=== PATIENT | female | born 1995 | race American Indian/Alaskan Native ===

== ENCOUNTER 2016-11-11 17:34 | Emergency (ER) | payer SELFPAY ==
--- NOTE | 2016-11-11 18:05 | Emergency Department Report ---
Chief Complaint: Abdominal Pain Stated Complaint: CONCERNS Time Seen by Provider: 11/11/16 18:01 - HPI History of Present Illness: PT states she she just found out she is . PT states lmp in Sep. PT states she sees cryptologist but she has been having pelvic pain. - ROS Review of Systems: + nausea + lower abd pain denies bleeding - Exam Physical Exam: pt looks well, non toxic gcs 15, steady gait. abd soft, pt c/o pelvic pain MSE screening note: Focused history and physical exam performed. Due to findings the following was ordered: labs, us ED Disposition for MSE Condition: Stable
[2016-11-11 18:59] VITALS: BP 138/99
[2016-11-11 19:37] LABS: Basophils % (Auto) 0.3 % (0.0-1.8); Eosinophils % (Auto) 1.6 % (0.0-4.3); Hemoglobin 13.7 gm/dl (10.1-14.3); Mean Corpuscular HGB Conc 33 % (30-34); Mean Corpuscular Hemoglobin 30 pg (28-32); Mean Corpuscular Volume 89 fl (79-97); Platelet Count 222 K/mm3 (140-440); Red Blood Count 4.59 M/mm3 (3.65-5.03); Red Cell Distribution Width 12.8 % (13.2-15.2); White Blood Count 8.3 K/mm3 (4.5-11.0)
[2016-11-11 19:58] LABS: Alanine Aminotransferase 8 units/L (7-56); Albumin 3.6 g/dL (3.9-5); Albumin/Globulin Ratio 0.9 %; Alkaline Phosphatase 42 units/L (35-129); Anion Gap 17 mmol/L; BUN/Creatinine Ratio 14.28; Bilirubin,Total 0.4 mg/dL (0.1-1.2); Blood Urea Nitrogen 10 mg/dL (7-17); Carbon Dioxide 22 mmol/L (22-30); Chloride 100.3 mmol/L (98-107); Glucose 108 mg/dL (65-100); Sodium 135 mmol/L (137-145); Total Protein 7.7 g/dL (6.3-8.2)
--- NOTE | 2016-11-11 20:38 | Ultrasound Report ---
FINAL REPORT EXAM: US OB \T\lt; = 14 WEEKS FETUS HISTORY: early , pain TECHNIQUE: Transabdominal and transvaginal sonography of the pelvis. PRIORS: None. FINDINGS: There is a single, live intrauterine . Ultrasound estimated gestational age is 6 weeks 1 day. Ultrasound estimated date of confinement is 06 July 2017. heart motion is detected. The right ovary measures 3.3 x 1.7 x 1.4 cm and is grossly unremarkable. The left ovary measures 2.4 x 1.6 x 1.3 cm and is grossly unremarkable. Remainder of uterus and adnexa grossly unremarkable. IMPRESSION: 1. Single, live intrauterine .
--- NOTE | 2016-11-11 20:38 | Ultrasound Report ---
FINAL REPORT EXAM: US OB TRANSVAGINAL HISTORY: early , pain TECHNIQUE: Transabdominal and transvaginal sonography of the pelvis. PRIORS: None. FINDINGS: There is a single, live intrauterine . Ultrasound estimated gestational age is 6 weeks 1 day. Ultrasound estimated date of confinement is 06 July 2017. heart motion is detected. The right ovary measures 3.3 x 1.7 x 1.4 cm and is grossly unremarkable. The left ovary measures 2.4 x 1.6 x 1.3 cm and is grossly unremarkable. Remainder of uterus and adnexa grossly unremarkable. IMPRESSION: 1. Single, live intrauterine .
[2016-11-11 23:45] LABS: Bacteria,Urine 1+ /HPF (Negative); Bilirubin,Urine NEG (Negative); Blood,Urine NEG (Negative); Ketones,Urine 20 mg/dL (Negative); Leukocyte Esterase,Urine LG (Negative); Mucus,Urine FEW /HPF; Nitrite,Urine NEG (Negative); Protein,Urine <15 mg/dL mg/dL (Negative)
--- NOTE | 2016-11-12 17:43 | ED Elopement Review ---
ED Pt Elopement review - Results review Lab results: Laboratory Tests 11/11/16 11/11/16 11/11/16 19:19 19:19 19:19 WBC 8.3 RBC 4.59 Hgb 13.7 Hct 41.0 MCV 89 MCH 30 MCHC 33 RDW 12.8 L Plt Count 222 Lymph % (Auto) 26.1 [place] % (Auto) 8.0 H Eos % (Auto) 1.6 Baso % (Auto) 0.3 Lymph # 2.2 [place] # 0.7 Eos # 0.1 Baso # 0.0 Seg Neutrophils % 64.0 Seg Neutrophils # 5.3 Carbon Dioxide 22 BUN 10 Creatinine 0.7 Estimated GFR > 60 BUN/Creatinine Ratio 14.28 Glucose 108 H Calcium 9.0 Total Bilirubin 0.4 AST 13 ALT 8 Alkaline Phosphatase 42 Total Protein 7.7 Albumin 3.6 L Albumin/Globulin Ratio 0.9 HCG, Quant 85883 H Urine Color Urine Turbidity Urine pH Ur Specific [place] Urine Protein Urine Glucose (UA) Urine Ketones Urine Blood Urine Nitrite Urine Bilirubin Urine Urobilinogen Ur Leukocyte Esterase Urine WBC (Auto) Urine RBC (Auto) U Epithel Cells (Auto) Urine Bacteria (Auto) Hyaline Casts Urine Mucus 11/11/16 22:15 WBC RBC Hgb Hct MCV MCH MCHC RDW Plt Count Lymph % (Auto) [place] % (Auto) Eos % (Auto) Baso % (Auto) Lymph # [place] # Eos # Baso # Seg Neutrophils % Seg Neutrophils # Carbon Dioxide BUN Creatinine Estimated GFR BUN/Creatinine Ratio Glucose Calcium Total Bilirubin AST ALT Alkaline Phosphatase Total Protein Albumin Albumin/Globulin Ratio HCG, Quant Urine Color Yellow Urine Turbidity Slightly-cloudy Urine pH 5.0 Ur Specific [place] 1.023 Urine Protein <15 mg/dl Urine Glucose (UA) Neg Urine Ketones 20 Urine Blood Neg Urine Nitrite Neg Urine Bilirubin Neg Urine Urobilinogen 2.0 Ur Leukocyte Esterase Lg Urine WBC (Auto) 69.0 H Urine RBC (Auto) 4.0 U Epithel Cells (Auto) 10.0 Urine Bacteria (Auto) 1+ Hyaline Casts 1 Urine Mucus Few - Call Back decision Pt Call Back Decision: Pt to F/U with PMD (UTI and preg need u/s and Tx)
== END 2016-11-12 02:32 | disposition left against medical advice (07) ==
LOC: ED 17:34
DX: O26.891 Other specified pregnancy related conditions, first trimester (principal); R10.2 Pelvic and perineal pain; Z53.21 Procedure and treatment not carried out due to patient leaving prior to being seen by health care provider
CPT/HCPCS: 36415; 76801; 76817; 80053; 81001; 84702; 85025

== ENCOUNTER 2018-09-11 15:16 | Outpatient (CLI) | payer MEDICAID ==
[2018-09-11] MEDS ORDERED: LACTATED RINGERS 500 ML IV ONE (15:36)
[2018-09-11 16:53] VITALS: BP 128/83
== END 2018-09-11 17:23 | disposition home or self-care (01) ==
LOC: TRG 15:16
PROVIDERS: ATTEND Obstetrics & Gynecology
DX: O47.03 False labor before 37 completed weeks of gestation, third trimester (principal); Z3A.37 37 weeks gestation of pregnancy
CPT/HCPCS: J7120

== ENCOUNTER 2018-09-12 17:50 | Inpatient (IN) | payer MEDICAID ==
[2018-09-12] MEDS ORDERED: NORMODYNE PO ONE (19:17)
[2018-09-12 19:49] LABS: Bacteria,Urine 1+ /HPF (Negative); Bilirubin,Urine NEG (Negative); Blood,Urine NEG (Negative); Color,Urine Yellow (Yellow); Mucus,Urine FEW /HPF; Protein,Urine <15 mg/dL mg/dL (Negative)
[2018-09-12 19:55] LABS: Hematocrit 33.7 % (30.3-42.9); Hemoglobin 11.2 gm/dl (10.1-14.3); Mean Corpuscular HGB Conc 33 % (30-34); Mean Corpuscular Volume 90 fl (79-97); Platelet Count 199 K/mm3 (140-440); Red Blood Count 3.76 M/mm3 (3.65-5.03); Red Cell Distribution Width 14.1 % (13.2-15.2)
[2018-09-12 20:08] LABS: Alanine Aminotransferase 16 units/L (7-56); Uric Acid 4.3 mg/dL (3.5-7.6)
--- NOTE | 2018-09-12 21:08 | Ultrasound Report ---
FINAL REPORT PROCEDURE: US OB LIMITED TECHNIQUE: Real-time limited sonographic examination was performed for evaluation of amniotic fluid index for each fetus with image documentation (1 or more fetuses). CPT 80362 HISTORY: gal COMPARISON: No prior studies are available for comparison. FINDINGS: There is single intrauterine gestation with a heart rate of 138 beats per minute. Amniotic flui d index is 12.8 centimeters. IMPRESSION: Amniotic fluid index is 12.8 centimeters
--- NOTE | 2018-09-12 21:09 | Ultrasound Report ---
FINAL REPORT PROCEDURE: US OB BPP WO NON-STRESS TECHNIQUE: Sonographic evaluation for breathing, movement, tone, and amniotic flui d volume was performed. CPT 08468 HISTORY: bpp COMPARISON: No prior studies are available for comparison. FINDINGS: There is a single intrauterine gestation with a heart rate of 138 beats per minute. Amniotic fluid volume: Normal-score 2. At least one vertical pocket >2 cm or more in vertical axis . breathing: Normal-score 2. movement: Normal-score 2. tone: Normal. Score: 8 of 8. IMPRESSION: Normal biophysical profile.
--- NOTE | 2018-09-12 22:00 | History and Physical Report ---
History of Present Illness Date of examination: 09/12/18 Date of admission: 09/12/18 Chief complaint: SIUP at 38 weeks gestation with elevated BP History of present illness: Patient is a 23 year old , LMP 11/14/17, EDC 09/26/18 at 38 weeks gestation who was sent from the office for elevated BP of 158/111, repeat was 142/92. She developed gestational HTN in her early second trimester. She was referred to [facility] but she did not go. She denied any contraction, fuid leakage or bleeding, any headache, visual changes or RUQ pain. She reported good movement. tracing is CAT1. She has a previous C/section. Past History Past Surgical History: section Social history: no significant social history - Obstetrical History Expected Date of Delivery: 09/26/18 Actual Gestation: 38 Week(s) 1 Day(s) : 2 Para: 1 Induced : 1 #1 Gender: Female year: 2[birth year] Birthweight: 2.665 kg Method of Delivery: Gestational age at delivery: 38 Complications: other (pre-eclampsia) Medications and Allergies Allergies Allergy/AdvReac Type Severity Reaction Status Date / Time No Known Allergies Allergy Verified 11/11/16 18:55 Home Medications Medication Instructions Recorded Confirmed Last Taken Type Vit-Fe Fumar-FA [ 1 tab PO QDAY 06/17/17 09/12/18 09/12/18 11: 30 History Vitamin] - Vital Signs Vital signs: Vital Signs Temp Pulse Resp BP 98.2 F 86 18 128/82 09/12/18 19:10 09/12/18 19:10 09/12/18 19:10 09/12/18 19:10 Temp Pulse Resp BP Pulse Ox 97.8 F 89 18 142/87 09/12/18 21:18 09/12/18 21:15 09/12/18 21:18 09/12/18 21:15 - Physical Exam Cardiovascular: Normal S1, Normal S2 Lungs: Positive: Clear to auscultation Vulva: both: normal Adnexa: both: normal Deep Tendon Reflex Grade: Normal +2 - Obstetrical FHR: category 1 Uterine Contraction Monitor Mode: External Cervical Dilatation: 1 Cervical Effacement Percentage: 0 station: -3 Uterine Contraction Pattern: Absent Results Result Diagrams: 09/12/18 19:19 09/12/18 19:19 Abnormal lab results 09/12/18 09/12/18 Range/Units 19:14 19:19 Creatinine 0.5 L (0.7-1.2) mg/dL Urine WBC (Auto) 12.0 H (0.0-6.0) /HPF All other labs normal. Assessment and Plan - Patient Problems (1) 38 weeks gestation of Current Visit: Yes Status: Acute (2) Gestational HTN Current Visit: Yes Status: Acute Plan to address problem: Admit to labor floor. IV hydration. monitoring. Toxemia labs. BP monitoring. Labetolol for BP control. Sonogram for BPP. (3) Previous section Current Visit: Yes Status: Acute Plan to address problem: For repeat C/section. (4) Late care Current Visit: Yes Status: Acute (5) Non-compliance Current Visit: Yes Status: Acute
[2018-09-12] MEDS ORDERED: COLACE PO PRN (22:13)
[2018-09-12] MEDS ORDERED: AMBIEN PO PRN (22:13)
[2018-09-12] MEDS ORDERED: TYLENOL PO PRN (22:13)
[2018-09-13] MEDS: LACTATED RINGERS 1,000 ML IV SCH ×2 (01:32→23:16)
--- NOTE | 2018-09-13 09:51 | Progress Note ---
Assessment and Plan - Patient Problems (1) 38 weeks gestation of Current Visit: Yes Status: Acute (2) Gestational HTN Current Visit: Yes Status: Acute Plan to address problem: monitoring. Toxemia labs normal. BP monitoring. Labetolol for BP control. Due to lack of compliance with care, patient was counselled for repeat C/section today. Risks and benefits of the procedure were discussed with the patient such as infection, hemorrhage requiring blood transfusion, injury to the bowel, bladder and blood vessels. She expressed understanding, her questions w ere answered, she gave her informed consent. Keep NPO. Anesthesia has been notified. (3) Previous section Current Visit: Yes Status: Acute Plan to address problem: For repeat C/section. (4) Late care Current Visit: Yes Status: Acute (5) Non-compliance Current Visit: Yes Status: Acute Subjective - Subjective Date of service: 09/13/18 Principal diagnosis: SIUP at 38 weeks and 1 day with gestational HTN Interval history: Patient is a 23 year old , LMP 11/14/17, EDC 09/26/18 at 38 weeks gestation who was sent from the office for elevated BP of 158/111, repeat was 142/92. She developed gestational HTN in her early second trimester. She was referred to [facility] but she did not go. She denied any contraction, fuid leakage or bleeding, any headache, visual changes or RUQ pain. She reported good movement. tracing is CAT1. She has a previous C/section. Objective - Vital Signs Vital Signs: Vital Signs - 12hr 09/12/18 09/12/18 09/12/18 21:42 21:57 22:12 Temperature Pulse Rate 90 91 H 93 H Respiratory Rate Blood Pressure 148/92 140/74 137/72 09/12/18 09/12/18 09/12/18 22:13 22:27 22:42 Temperature Pulse Rate 96 H 90 91 H Respiratory Rate Blood Pressure 135/70 136/73 160/90 09/12/18 09/12/18 09/12/18 22:56 23:26 23:56 Temperature Pulse Rate 79 91 H 97 H Respiratory Rate Blood Pressure 128/77 123/70 116/67 09/13/18 09/13/18 09/13/18 00:26 00:56 01:27 Temperature Pulse Rate 89 85 88 Respiratory Rate Blood Pressure 132/71 120/69 120/68 09/13/18 09/13/18 09/13/18 01:56 02:27 02:56 Temperature Pulse Rate 88 95 H 86 Respiratory Rate Blood Pressure 118/56 121/70 118/56 09/13/18 09/13/18 09/13/18 03:26 03:57 04:26 Temperature Pulse Rate 89 89 93 H Respiratory Rate Blood Pressure 117/69 127/65 116/68 09/13/18 09/13/18 09/13/18 05:26 05:56 06:26 Temperature Pulse Rate 81 82 83 Respiratory Rate Blood Pressure 126/60 115/68 119/67 09/13/18 09/13/18 09/13/18 08:26 08:30 08:56 Temperature 97.7 F Pulse Rate 85 78 Respiratory 18 Rate Blood Pressure 117/61 119/68 09/13/18 09:26 Temperature Pulse Rate 95 H Respiratory Rate Blood Pressure 124/76 - Exam Cardiovascular: Normal S1, Normal S2 Lungs: Clear to auscultation Vulva: both: normal FHR: category 1 Uterine Contraction Monitor Mode: External Cervical Dilatation: 1 Cervical Effacement Percentage: 0 station: -3 Uterine Contraction Pattern: Absent Deep Tendon Reflex Grade: Normal +2 - Labs Labs: Abnormal Labs 09/12/18 09/12/18 19:14 19:19 Creatinine 0.5 L Urine WBC (Auto) 12.0 H Laboratory Results - last 24 hr 09/12/18 09/12/18 09/12/18 19:14 19:19 19:19 WBC 6.7 RBC 3.76 Hgb 11.2 Hct 33.7 MCV 90 MCH 30 MCHC 33 RDW 14.1 Plt Count 199 Creatinine 0.5 L Estimated GFR > 60 Uric Acid 4.3 AST 20 ALT 16 Lactate Dehydrogenase 120 Urine Color Yellow Urine Turbidity Clear Urine pH 6.0 Ur Specific [place] 1.023 Urine Protein <15 mg/dl Urine Glucose (UA) Neg Urine Ketones Neg Urine Blood Neg Urine Nitrite Neg Urine Bilirubin Neg Urine Urobilinogen 4.0 Ur Leukocyte Esterase Lg Urine WBC (Auto) 12.0 H Urine RBC (Auto) 2.0 U Epithel Cells (Auto) 9.0 Urine Bacteria (Auto) 1+ Urine Mucus Few Blood Type Antibody Screen 09/12/18 23:17 WBC RBC Hgb Hct MCV MCH MCHC RDW Plt Count Creatinine Estimated GFR Uric Acid AST ALT Lactate Dehydrogenase Urine Color Urine Turbidity Urine pH Ur Specific [place] Urine Protein Urine Glucose (UA) Urine Ketones Urine Blood Urine Nitrite Urine Bilirubin Urine Urobilinogen Ur Leukocyte Esterase Urine WBC (Auto) Urine RBC (Auto) U Epithel Cells (Auto) Urine Bacteria (Auto) Urine Mucus Blood Type B POSITIVE Antibody Screen Negative - Results US- obstetric: report reviewed
[2018-09-13] MEDS: NORMODYNE PO SCH ×2 (11:05→22:35)
[2018-09-13] MEDS: PRENATAL VITAMIN PO SCH (11:05)
[2018-09-13] MEDS ORDERED: BICITRA PO ONE ×2 (19:00→22:05)
[2018-09-13] MEDS ORDERED: PEPCID IV ONE ×2 (19:00→22:06)
[2018-09-13] MEDS ORDERED: ANCEF/STERILE WATER 2 GM/20 ML 2 GM/20 ML SYRINGE IV NR (19:00)
[2018-09-13] MEDS ORDERED: LACTATED RINGERS 1,000 ML IV SCH (19:00)
[2018-09-13] MEDS ORDERED: REGLAN IV ONE ×2 (19:00→22:06)
[2018-09-13] MEDS ORDERED: PITOCin/NS 20 UNIT/1000ML DRIP 20 UNITS/1,000 ML BAG IV SCH (19:00)
[2018-09-13 19:59] LABS: Basophils % (Auto) 0.1 % (0.0-1.8); Eosinophils % (Auto) 0.4 % (0.0-4.3); Hematocrit 32.4 % (30.3-42.9); Hemoglobin 10.7 gm/dl (10.1-14.3); Lymphocytes # (Auto) 1.6 K/mm3 (1.2-5.4); Lymphocytes % (Auto) 22.6 % (13.4-35.0); Mean Corpuscular HGB Conc 33 % (30-34); Mean Corpuscular Volume 89 fl (79-97); Monocytes # (Auto) 0.6 K/mm3 (0.0-0.8); Monocytes % (Auto) 9.2 % (0.0-7.3); Platelet Count 199 K/mm3 (140-440); Red Blood Count 3.65 M/mm3 (3.65-5.03); Red Cell Distribution Width 14.1 % (13.2-15.2)
[2018-09-14] MEDS ORDERED: ANCEF/STERILE WATER 2 GM/20 ML IV ONE (00:13)
--- NOTE | 2018-09-14 01:25 | Operative Report ---
Operative Report Operative Report: Date of procedure: 09/14/2018 Pre-operative diagnosis: 1. Intrauterine at 38-3/7 weeks 2. Previo us 3. Gestational hypertension Post-operative diagnosis: Same Procedure name(s): Repeat low transverse section Surgeon: Roberto Fish MD Principal Secretary: None Anesthesia: Spinal anesthesia by Dr. Triana EBL: 700 mL Findings: A 2758 g female infant Apgars 8 at 1 minute 9 at 5 minutes. Clear amniotic fluid. Normal uterus. Normal tubes and ovaries bilaterally. Procedure: After the patient was prepped and draped in usual sterile fashion, and after satisfactory level of epidural anesthesia was obtained, the skin knife was used to make a transverse skin incision through the previous skin scar. The incision was excised down to layer of the fascia, which was nicked in the midline and extended laterally using the Bovie cautery. The rectus muscles were dissected off the rectus fascia both superiorly and inferiorly. The rectus bellies in the midline, and the peritoneum was entered under direct visualization. The peritoneal incision was extended superiorly and inferiorly. A bladder flap was created and the bladder blade was then placed. The uterus was scored in a curvilinear linear fashion, entered in the midline revealing clear amniotic fluid. The 's head was delivered onto the surgical field, and the oropharynx and nasopharynx were bulb suctioned. The rest of the 's body was delivered, cord was doubly clamped and cut and the infant was handed to the waiting respiratory team. The placenta was manually removed from the uterus, and the uterus removed from its normal anatomical position. After gentle uterine lavage, the incision was inspected and found to be without extensions. It was then closed in 2 layers using 0 Vicryl suture in a running interlocking fashion, the second layer imbricating the first. After good hemostasis was achieved, copious amounts or irrigation was performed, and the gutters were suctioned free of blood and blood clots. The uterus was then returned to its normal anatomical position, and after excellent hemostasis assured, the peritoneum was re-approximated using 3-0 Vicryl suture in a running interlocking fashion, and then the rectus muscles were re-approximated using 3-0 Vicryl suture in a [id number] configuration. The fascia was then re- approximated using 0 Vicryl suture in running interlocking fashion. The subcutaneous layer was made hemostatic using Bovie cautery, the Tisseel sealant was sprayed across the fascial incision and the skin edges re-approximated using jordan. Patient tolerated the procedure well was transported to recovery in stable condition.
[2018-09-14] MEDS ORDERED: SENOKOT PO PRN (01:37)
[2018-09-14] MEDS ORDERED: ZOFRAN IV PRN (01:37)
[2018-09-14] MEDS ORDERED: TUCKS PAD TP PRN (01:37)
[2018-09-14] MEDS ORDERED: PHENERGAN PR PRN (01:37)
[2018-09-14] MEDS ORDERED: MYLICON PO PRN (01:37)
[2018-09-14] MEDS ORDERED: NARCAN 0.4 MG/1 ML IV PRN (01:37)
[2018-09-14] MEDS ORDERED: LANSINOH TP PRN (01:37)
[2018-09-14] MEDS ORDERED: PERCOCET 5/325 PO PRN (01:37)
[2018-09-14] MEDS ORDERED: MILK OF MAGNESIA PO PRN (01:37)
[2018-09-14] MEDS ORDERED: D5LR 1,000 ML IV SCH (02:00)
[2018-09-14] MEDS ORDERED: PITOCin/NS 20 UNIT/1000ML DRIP 20 UNITS/1,000 ML BAG IV SCH (02:00)
[2018-09-14] MEDS ORDERED: SODIUM CHLORIDE FLUSH SYRINGE 10 ML IV PRN (02:00)
[2018-09-14] MEDS: TORADOL IV PRN ×2 (02:28→14:31)
[2018-09-14] MEDS: DILAUDID IV PRN ×2 (02:31→04:46)
[2018-09-14] MEDS ORDERED: LACTATED RINGERS 1,000 ML IV SCH (03:00)
[2018-09-14] MEDS: ANCEF/NS 1 GM/50 ML 1 GM/50 ML BAG IV SCH ×2 (07:39→15:32)
[2018-09-14] MEDS: NORMODYNE PO SCH ×2 (10:10→21:57)
[2018-09-14] MEDS: FEOSOL PO SCH (10:10)
[2018-09-14] MEDS: PRENATAL VITAMIN PO SCH (10:10)
[2018-09-14 13:47] LABS: Hematocrit 33.4 % (30.3-42.9); Hemoglobin 10.9 gm/dl (10.1-14.3)
[2018-09-14] MEDS: IBUPROFEN PO PRN (21:57)
[2018-09-15] MEDS ORDERED: M-M-R II VACCINE SUB-Q ONE (01:39)
[2018-09-15] MEDS: NORCO 5/325 PO PRN ×3 (01:43→22:16)
[2018-09-15] MEDS: IBUPROFEN PO PRN ×3 (05:55→22:16)
[2018-09-15] MEDS ORDERED: BOOSTRIX IM ONE (06:00)
[2018-09-15] MEDS: PRENATAL VITAMIN PO SCH (09:32)
[2018-09-15] MEDS: NORMODYNE PO SCH ×2 (09:32→22:17)
[2018-09-15] MEDS: FEOSOL PO SCH (09:32)
[2018-09-15] MEDS ORDERED: BENADRYL PO ONE (15:34)
[2018-09-15] MEDS ORDERED: BENADRYL PO PRN (15:34)
[2018-09-15] MEDS ORDERED: BANOPHEN ANTI-ITCH TP PRN (15:34)
--- NOTE | 2018-09-15 23:03 | Progress Note ---
Assessment and Plan A: /postop day 1 S/P repeat LTCS. Anemia. P: Encouraged ambulation. Supplement with iron. Subjective - Subjective Date of service: 09/15/18 Principal diagnosis: /postop day 1 S/P repeat LTCS Patient reports: appetite normal, voiding normally, pain well controlled, flatus, ambulating normally, no dizzy ambulation, no nauseated : doing well Objective - Vital Signs Latest vital signs: Vital Signs Temp Pulse Resp BP BP 09/15/18 22:17 79 133/84 09/15/18 16:53 98.8 F 84 18 140/93 09/15/18 09:32 122/74 09/15/18 07:50 97.8 F 80 18 122/71 09/15/18 06:30 18 09/15/18 05:55 18 09/15/18 02:43 18 09/15/18 01:58 98.7 F 82 16 111/58 09/15/18 01:43 18 Intake and Output 09/15/18 09/15/18 09/15/18 07:59 15:59 23:59 Intake Total 840 360 Output Total 500 Balance 340 360 Intake: Oral 360 360 Intake, Free Water 480 Output: Urine 500 Void 500 Other: Total, Intake Amount 360 360 Total, Output Amount 500 # Voids Void 1 - Exam Cardiovascular: Present: Regular rate, Normal S1, Normal S2 Lungs: Present: Clear to auscultation, Normal air movement Abdomen: Present: normal appearance, soft, normal bowel sounds. Absent: distention, tenderness, guarding, rigidity Uterus: Present: normal, firm, fundal height below umbilicus. Absent: bogginess, tenderness Extremities: Present: normal. Absent: tenderness, edema Incision: Present: normal, dry, intact, dressed
--- NOTE | 2018-09-16 18:19 | Progress Note ---
Assessment and Plan A: /postop day 2 S/P LTCS. Anemia. P: Continue iron supplementation. Anticipate discharge tomorrow. Subjective - Subjective Date of service: 09/16/18 Principal diagnosis: /postop day 2 S/P repeat LTCS Interval history: /postop day 2 S/P LTCS. Doing well. Voiding without difficulty. Ambulating well. Passing gas and tolerating a regular diet. Patient denies headache, chest pain, cough, shortness of breath, abdominal pain, leg pain, heavy bleeding or any other problems. Patient reports: appetite normal, voiding normally, pain well controlled, flatus, ambulating normally, no dizzy ambulation, no nauseated [place]: doing well Objective - Vital Signs Latest vital signs: Vital Signs Temp Pulse Resp BP BP 09/16/18 07:50 97.6 F 75 18 148/84 09/16/18 01:35 98.7 F 82 20 110/63 09/15/18 22:17 79 133/84 Intake and Output 09/16/18 09/16/18 09/16/18 07:59 15:59 23:59 Intake Total 960 Balance 960 Intake: Oral 360 Intake, Free Water 600 Other: Total, Intake Amount 360 # Voids Void 1 - Exam Cardiovascular: Present: Regular rate, Normal S1, Normal S2, No murmurs Lungs: Present: Clear to auscultation Abdomen: Present: normal appearance, soft, normal bowel sounds. Absent: distention, tenderness, guarding, rigidity Uterus: Present: normal, firm, fundal height below umbilicus. Absent: bogginess, tenderness Extremities: Present: normal. Absent: tenderness, edema Incision: Present: normal, dry, intact
[2018-09-16] MEDS: IBUPROFEN PO PRN (19:00)
[2018-09-16] MEDS: NORCO 5/325 PO PRN (19:00)
[2018-09-16] MEDS: NORMODYNE PO SCH (22:00)
--- NOTE | 2018-09-17 11:30 | Progress Note ---
Assessment and Plan - Patient Problems (1) S/P repeat low transverse Current Visit: Yes Status: Acute Plan to address problem: POD 3 - stable Discharge to home today Follow-up at [facility] in 1 week for jordan removal, incision check, and BP check (2) Gestational HTN Current Visit: Yes Status: Acute Qualifiers: Trimester: third trimester Qualified Code(s): O13.3 - Gestational [-induced] hypertension without significant proteinuria, third trimester Plan to address problem: BP this AM 151/92; repeat after 3 hrs 138/79 (previously 125/78, 104/61) - asymptomatic Continue Labetalol 200mg PO BID Subjective - Subjective Date of service: 09/17/18 Principal diagnosis: POD #3; s/p Repeat LTCS Patient reports: appetite normal, voiding normally, pain well controlled, flatus, bowel movement, ambulating normally, other (denies headache, visual disturbances, or RUQ pain), no dizzy ambulation : doing well, other (breast and bottle feeding) Objective - Vital Signs Latest vital signs: Vital Signs Temp Pulse Resp BP BP Pulse Ox 09/17/18 08:57 98.2 F 70 16 151/92 99 09/17/18 00:00 98.7 F 73 18 104/61 09/16/18 22:00 72 125/78 09/16/18 16:32 97.5 F L 78 18 146/83 Intake and Output 09/16/18 09/17/18 09/17/18 23:59 07:59 15:59 Intake Total 240 120 Balance 240 120 Intake: Oral 240 120 Other: Total, Intake Amount 240 120 - Exam Cardiovascular: Present: Regular rate Abdomen: Present: normal appearance, soft Vulva: both: normal Uterus: Present: normal, firm, fundal height below umbilicus Extremities: Present: normal Incision: Present: normal, dry, intact, other (jordan in place) Comments: scant lochia
--- NOTE | 2018-09-17 11:56 | Discharge Summary ---
Providers - Providers Date of Admission: 09/12/18 23:04 Date of discharge: 09/17/18 Attending physician: JOSE RIDER MD Primary care physician: JOSE RIDER MD Hospitalization Reason for admission: IUP at term, other (elevated BPs) Delivery: Procedure: repeat low transverse Episiotomy: none Laceration: none Incision: normal, dry, intact, other (jordan in place) Other procedures: none complications: none Discharge diagnosis: IUP at term delivered baby: female Hospital course: Uncomplicated Condition at discharge: Stable Disposition: [id number] TO HOME OR SELFCARE - Discharge Diagnoses (1) S/P repeat low transverse Status: Acute (2) Gestational HTN Status: Acute Qualifiers: Trimester: third trimester Qualified Code(s): O13.3 - Gestational [-induced] hypertension without significant proteinuria, third trimester Comment: Continue Labetalol 200mg PO BID Plan - Discharge Medications Prescriptions: Ferrous Sulfate [Feosol 325 MG tab] 325 mg PO BID #60 tablet HYDROcodone/APAP 5-325 [[place] 5/325] 1 each PO Q6HR PRN #30 tablet PRN Reason: Pain Ibuprofen [Motrin] 800 mg PO Q8HR PRN #30 tablet PRN Reason: Moder Pain Unrelieved By [place] Labetalol [Normodyne TAB] 200 mg PO BID #60 tablet Pnv No.95/Ferrous Fum/Folic AC [Prenavite Tablet] 1 each PO DAILY #30 tablet - Provider Discharge Summary Activity: routine, no sex for 6 weeks, no heavy lifting 4 weeks, no strenuous exercise Diet: routine Instructions: routine Additional instructions: [] Smoking cessation referral if applicable(refer to patient education folder for contact #) [] Refer to [facility]'s [facility] Booklet Call your doctor immediately for: * Fever > 100.5 * Heavy vaginal bleeding ( >1 pad per hour) * Severe persistent headache * Shortness of breath * Reddened, hot, painful area to leg or breast * Drainage or odor from incision. * Keep incision clean and dry at all times and follow doctor's instructions regarding bathing/showering - Follow up plan Follow up: JOSE RIDER MD [Primary Care Provider] - 7 Days (Follow-up at [facility] in 1 week for jordan removal, incision and BP check)
[2018-09-17] MEDS: FEOSOL PO SCH (12:54)
[2018-09-17] MEDS: NORMODYNE PO SCH (12:54)
[2018-09-17] MEDS: NORCO 5/325 PO PRN (12:55)
[2018-09-17] MEDS: IBUPROFEN PO PRN (13:03)
[2018-09-17 14:44] VITALS: BP 123/72
== END 2018-09-17 16:30 | disposition home or self-care (01) | DRG 765 ==
LOC: TRG 17:50 → LD 23:04 → APU 09-14 01:22 → OB 09-14 02:51
PROVIDERS: ADMIT Obstetrics & Gynecology; ATTEND Obstetrics & Gynecology
PROC: 10D00Z1 Extraction of Products of Conception, Low, Open Approach (ICD-10-PCS; principal; 2018-09-14)
PROC: 3E0234Z Introduction of Serum, Toxoid and Vaccine into Muscle, Percutaneous Approach (ICD-10-PCS; 2018-09-15)
DX: O34.211 Maternal care for low transverse scar from previous cesarean delivery (principal); O13.4 Gestational [pregnancy-induced] hypertension without significant proteinuria, complicating childbirth; Z3A.38 38 weeks gestation of pregnancy; Z37.0 Single live birth; Z23 Encounter for immunization; Z91.19 Patient's noncompliance with other medical treatment and regimen; O99.02 Anemia complicating childbirth; D64.9 Anemia, unspecified
CPT/HCPCS: 36415; 76815; 76819; 81001; 82565; 83615; 84450; 84460; 84550; 85014; 85018; 85025; 85027; 86850; 86900; 86901; G0378; A6250; J0690; J1170; J1885; J2590; J2765; J7120; J7121

== ENCOUNTER 2019-04-30 11:04 | Emergency (ER) | payer SELFPAY ==
[2019-04-30 11:22] VITALS: BP 131/77
--- NOTE | 2019-04-30 11:24 | Event Note ---
ED Screening Note Date of service: 04/30/19 Time: 11:21 ED Screening Note: This is a 24 y.o. F. that presents to the ER with chest pain that started today while at work. Patient states she was lifting a box when symptoms started. This initial assessment/diagnostic orders/clinical plan/treatment(s) is/are subject to change based on patients health status, clinical progression and re- assessment by fellow clinical providers in the ED. Further treatment and workup at subsequent clinical providers discretion. Patient/guardian urged not to elope from the ED as their condition may be serious if not clinically assessed and managed. Initial orders include: EKG & CXR
--- NOTE | 2019-04-30 12:18 | XRay Report ---
CHEST 1 VIEW INDICATION: Chest Pain. COMPARISON: None. FINDINGS: Support devices: None. Heart: Normal. Pulmonary vasculature: Normal. Lungs/Pleura: Normally expanded and clear lungs. No airspace disease. No pleural effusion. Additional findings: Mild dextroscoliosis. IMPRESSION: 1. No acute findings. Signer Name: Foster Ward MD Signed: 04/30/2019 12:14 PM Workstation Name: [id number]
--- NOTE | 2019-04-30 13:22 | Emergency Department Report ---
HPI - General Chief Complaint: Chest Pain Time Seen by Provider: 04/30/19 11:21 - HPI HPI: 24-year-old -Prydeinig female presents to the emergency department with a complaint of some intermittent or spasmodic generalized chest pain that was happening at work today when she was lifting some heavy boxes. She presents by EMS and did not receive anything for her symptoms in route. She denies any current pain. She denies any shortness of breath, fever, back pain. No past medical history. Denies tobacco or illicit drug use. No recent travel or sick contacts at home. She does not have a primary care physician. ED Past Medical Hx - Past Medical History Hx Hypertension: No Hx Congestive Heart Failure: No Hx Diabetes: No Hx Deep Vein Thrombosis: No Hx Renal Disease: No Hx Sickle Cell Disease: No Hx Seizures: No Hx Asthma: No Hx COPD: No Hx HIV: No - Surgical History Past Surgical History?: No Additional Surgical History: X2 - Social History Smoking Status: Never Smoker Substance Use Type: None - Medications Home Medications: Home Medications Medication Instructions Recorded Confirmed Last Taken Type Vit-Fe Fumar-FA [ 1 tab PO QDAY 06/17/17 09/12/18 09/12/18 11:30 History Vitamin] Ferrous Sulfate [Feosol 325 MG tab] 325 mg PO BID #60 tablet 09/14/18 Unknown Rx HYDROcodone/APAP 5-325 [[place] 1 each PO Q6HR PRN #30 tablet 09/14/18 Unknown Rx 5/325] Ibuprofen [Motrin] 800 mg PO Q8HR PRN #30 tablet 09/14/18 Unknown Rx Pnv No.95/Ferrous Fum/Folic AC 1 each PO DAILY #30 tablet 09/14/18 Unknown Rx [Prenavite Tablet] Labetalol [Labetalol 200mg TAB] 200 mg PO BID #60 tablet 09/17/18 Unknown Rx ED Review of Systems ROS: Stated complaint: CHEST PAIN Other details as noted in HPI Comment: All other systems reviewed and negative Constitutional: denies: chills, fever Respiratory: denies: cough, shortness of breath Cardiovascular: chest pain. denies: palpitations Gastrointestinal: denies: abdominal pain, vomiting Musculoskeletal: denies: back pain, arthralgia Physical Exam - Physical Exam Vital Signs: Vital Signs 04/30/19 11:21 Temperature 98.2 F Pulse Rate 75 Respiratory 15 Rate Blood Pressure 131/77 [Left] O2 Sat by Pulse 99 Oximetry Physical Exam: GENERAL: The patient is well-developed well-nourished. HENT: Normocephalic. Atraumatic. Patient has moist mucous membranes. EYES: Extraocular motions are intact. NECK: Supple. Trachea is midline. CHEST/LUNGS: Clear to auscultation. There is no respiratory distress noted. HEART/CARDIOVASCULAR: Regular. There is no tachycardia. There is no murmur. ABDOMEN: There is no abdominal distention. SKIN: Skin is warm and dry. NEURO: The patient is awake, alert, and oriented. The patient is cooperative. The patient has no focal neurologic deficits. Normal speech. MUSCULOSKELETAL: There is no tenderness or deformity. There is no evidence of acute injury. ED Course Vital Signs 04/30/19 11:21 Temperature 98.2 F Pulse Rate 75 Respiratory 15 Rate Blood Pressure 131/77 [Left] O2 Sat by Pulse 99 Oximetry ED Medical Decision Making - EKG Data -: EKG Interpreted by Me EKG shows normal: sinus rhythm, axis, intervals, QRS complexes, ST-T waves Rate: normal - EKG Data When compared to previous EKG there are: previous EKG unavailable Interpretation: normal EKG - Radiology Data Radiology results: image reviewed interpreted by me: Chest x-ray does not show any acute process. There are no pleural effusions, obvious pneumonia and there is no pneumothorax. - Medical Decision Making This patient presents to the emergency department with some chest pain that occurred while the patient was lifting heavy objects while at work. Currently she is asymptomatic. EKG does not show any signs of ST elevation IL, ischemia or dysrhythmia. Chest x-ray does not show any acute process. Patient does not have any significant risk factors for coronary artery disease. She will be discharged home to follow up with primary care and instructed to return to the emergency department with any return or worsening of her symptoms, or with any acute distress. - Differential Diagnosis costochondritis, IL, pneumonia, pneumothorax Critical Care Time: No Critical care attestation.: If time is entered above; I have spent that time in minutes in the direct care of this critically ill patient, excluding procedure time. ED Disposition Clinical Impression: Atypical chest pain, Non-cardiac chest pain Disposition: TO HOME OR SELFCARE Is pt being admited?: No Condition: Stable Instructions: Chest Pain (ED), Costochondritis (ED) Additional Instructions: Please follow-up with a primary care physician in the next few days. Return to the emergency Department with any worsening of your symptoms or any acute distress. Referrals: NIKUNJ NAVARRO MD [Staff Physician] - 2-3 Days [facility] [Outside] - 2-3 Days Time of Disposition: 13:22
== END 2019-04-30 13:30 | disposition home or self-care (01) ==
LOC: ED 11:04
DX: R07.89 Other chest pain (principal); Z79.899 Other long term (current) drug therapy
CPT/HCPCS: 71045; 93005; 93010

== ENCOUNTER 2021-07-21 20:25 | Emergency (ER) | payer OTHER ==
--- NOTE | 2021-07-21 22:04 | Emergency Department Report ---
ED Lower Extremity HPI - General Chief Complaint: Extremity Injury, Lower Stated Complaint: LEFT ANKLE PAIN Time Seen by Provider: 07/21/21 21:46 Source: patient Mode of arrival: Ambulatory Limitations: No Limitations - History of Present Illness Initial Comments: Patient is 26 years old female with no significant past medical history. Patient presented to the ER complaining of left ankle pain for the last few days. Patient denied any injury. Patient denied any chest pain or shortness of breath. MD Complaint: ankle injury -: days(s) - Related Data Home Medications Medication Instructions Recorded Confirmed Last Taken Vit-Fe Fumar-FA [ 1 tab PO QDAY 06/17/17 09/12/18 09/12/18 11:30 Vitamin] Previous Rx's Medication Instructions Recorded Last Taken Type Ferrous Sulfate [Feosol 325 MG tab] 325 mg PO BID #60 tablet 09/14/18 Unknown Rx HYDROcodone/APAP 5-325 [[place] 1 each PO Q6HR PRN #30 tablet 09/14/18 Unknown Rx 5/325] Ibuprofen [Motrin] 800 mg PO Q8HR PRN #30 tablet 09/14/18 Unknown Rx Pnv No.95/Ferrous Fum/Folic AC 1 each PO DAILY #30 tablet 09/14/18 Unknown Rx [Prenavite Tablet] labetaloL [Labetalol 200mg TAB] 200 mg PO BID #60 tablet 09/17/18 Unknown Rx Allergies Allergy/AdvReac Type Severity Reaction Status Date / Time No Known Allergies Allergy Verified 11/11/16 18:55 ED Review of Systems ROS: Stated complaint: LEFT ANKLE PAIN Other details as noted in HPI Comment: All other systems reviewed and negative Constitutional: denies: chills, fever Respiratory: denies: cough, shortness of breath, SOB with exertion Cardiovascular: denies: chest pain, palpitations Gastrointestinal: denies: abdominal pain, nausea Neurological: denies: headache, weakness ED Past Medical Hx - Past Medical History Previous Medical History?: No Hx Hypertension: No Hx Congestive Heart Failure: No Hx Diabetes: No Hx Deep Vein Thrombosis: No Hx Renal Disease: No Hx Sickle Cell Disease: No Hx Seizures: No Hx Asthma: No Hx COPD: No Hx HIV: No - Surgical History Past Surgical History?: Yes Additional Surgical History: X2 - Social History Smoking Status: Never Smoker Substance Use Type: None - Medications Home Medications: Home Medications Medication Instructions Recorded Confirmed Last Taken Type Vit-Fe Fumar-FA [ 1 tab PO QDAY 06/17/17 09/12/18 09/12/18 11:30 History Vitamin] Ferrous Sulfate [Feosol 325 MG tab] 325 mg PO BID #60 tablet 09/14/18 Unknown Rx HYDROcodone/APAP 5-325 [[place] 1 each PO Q6HR PRN #30 tablet 09/14/18 Unknown Rx 5/325] Ibuprofen [Motrin] 800 mg PO Q8HR PRN #30 tablet 09/14/18 Unknown Rx Pnv No.95/Ferrous Fum/Folic AC 1 each PO DAILY #30 tablet 09/14/18 Unknown Rx [Prenavite Tablet] labetaloL [Labetalol 200mg TAB] 200 mg PO BID #60 tablet 09/17/18 Unknown Rx ED Physical Exam - General Limitations: No Limitations General appearance: alert, in no apparent distress - Head Head exam: Present: atraumatic, normocephalic, normal inspection - Eye Eye exam: Present: normal appearance - ENT ENT exam: Present: normal exam, normal orophraynx, mucous membranes moist - Neck Neck exam: Present: normal inspection, full ROM. Absent: tenderness, meningismus - Respiratory Respiratory exam: Present: normal lung sounds bilaterally - Cardiovascular Cardiovascular Exam: Present: regular rate, normal rhythm, normal heart sounds - GI/Abdominal GI/Abdominal exam: Present: soft, normal bowel sounds. Absent: distended, tenderness, guarding, rebound, rigid, mass, bruit, pulsatile mass, hernia - Extremities Exam Extremities exam: Present: normal inspection, full ROM, normal capillary refill. Absent: tenderness, pedal edema, joint swelling, calf tenderness - Expanded Lower Extremity Exam Left Ankle exam: Present: normal inspection, full ROM. Absent: tenderness, swelling Foot/Toe exam: Present: normal inspection, full ROM. Absent: tenderness, swelling - Neurological Exam Neurological exam: Present: alert, oriented X3, CN II-XII intact, normal gait - Skin Skin exam: Present: warm, intact, normal color ED Course Vital Signs 07/21/21 07/21/21 20:28 21:31 Temperature 98.6 F Pulse Rate 81 86 Respiratory 18 16 Rate Blood Pressure 125/86 121/77 [Right] O2 Sat by Pulse 100 98 Oximetry Critical care attestation.: If time is entered above; I have spent that time in minutes in the direct care of this critically ill patient, excluding procedure time. ED Disposition Clinical Impression: Left ankle sprain Disposition: 01 HOME / SELF CARE / HOMELESS Is pt being admited?: No Condition: Stable Instructions: Ankle Sprain, [id number] Referrals: PRIMARY CARE, [Primary Care Provider] - 3-5 Days
[2021-07-21 22:25] VITALS: BP 102/51
== END 2021-07-21 22:27 | disposition home or self-care (01) ==
LOC: ED 20:25
DX: S93.492A Sprain of other ligament of left ankle, initial encounter (principal); Z98.890 Other specified postprocedural states; Z79.899 Other long term (current) drug therapy; X58.XXXA Exposure to other specified factors, initial encounter; Y93.89 Activity, other specified; Y92.89 Other specified places as the place of occurrence of the external cause; Y99.8 Other external cause status
CPT/HCPCS: 99282

== ENCOUNTER 2021-07-30 21:06 | Emergency (ER) | payer OTHER ==
[2021-07-30 21:13] VITALS: BP 115/90
--- NOTE | 2021-07-31 01:58 | XRay Report ---
CHEST 1 VIEW 07/31/2021 12:50 AM INDICATION / CLINICAL INFORMATION: Exposure to mold. COMPARISON: One view of the chest from 04/30/2019. FINDINGS: SUPPORT DEVICES: None. HEART / MEDIASTINUM: No significant abnormality. LUNGS / PLEURA: No significant pulmonary abnormality. No significant pleural effusion. No pneumothora x. ADDITIONAL FINDINGS: No significant additional findings. IMPRESSION: 1. No acute abnormality of the chest. Signer Name: Les Sanders MD Signed: 07/31/2021 1:53 AM Workstation Name: [id number]
--- NOTE | 2021-07-31 03:33 | Emergency Department Report ---
ED General Adult HPI - General Chief complaint: Upper Respiratory Infection Stated complaint: COUGH FROM MOLD Time Seen by Provider: 07/31/21 01:47 Source: patient Mode of arrival: Ambulatory Limitations: No Limitations - Related Data Home Medications Medication Instructions Recorded Confirmed Last Taken Vit-Fe Fumar-FA [ 1 tab PO QDAY 06/17/17 09/12/18 09/12/18 11:30 Vitamin] Previous Rx's Medication Instructions Recorded Last Taken Type Ferrous Sulfate [Feosol 325 MG tab] 325 mg PO BID #60 tablet 09/14/18 Unknown Rx HYDROcodone/APAP 5-325 [[place] 1 each PO Q6HR PRN #30 tablet 09/14/18 Unknown Rx 5/325] Ibuprofen [Motrin] 800 mg PO Q8HR PRN #30 tablet 09/14/18 Unknown Rx Pnv No.95/Ferrous Fum/Folic AC 1 each PO DAILY #30 tablet 09/14/18 Unknown Rx [Prenavite Tablet] labetaloL [Labetalol 200mg TAB] 200 mg PO BID #60 tablet 09/17/18 Unknown Rx Naproxen [Naprosyn] 500 mg PO BID #14 tablet 07/21/21 Unknown Rx Albuterol Mdi (or & Nicu Only) 2 puff IH QID PRN #1 inhalation 07/31/21 Unknown Rx [ProAir HFA Inhaler] Benzonatate [Tessalon Perles] 100 mg PO Q8HR #20 capsule 07/31/21 Unknown Rx predniSONE [Deltasone] 20 mg PO QDAY #5 tab 07/31/21 Unknown Rx Allergies Allergy/AdvReac Type Severity Reaction Status Date / Time No Known Allergies Allergy Verified 11/11/16 18:55 ED Review of Systems ROS: Stated complaint: COUGH FROM MOLD Other details as noted in HPI Comment: All other systems reviewed and negative ED Past Medical Hx - Past Medical History Previous Medical History?: No Hx Hypertension: No Hx Congestive Heart Failure: No Hx Diabetes: No Hx Deep Vein Thrombosis: No Hx Renal Disease: No Hx Sickle Cell Disease: No Hx Seizures: No Hx Asthma: No Hx COPD: No Hx HIV: No - Surgical History Past Surgical History?: Yes Additional Surgical History: X2 - Social History Smoking Status: Never Smoker Substance Use Type: None - Medications Home Medications: Home Medications Medication Instructions Recorded Confirmed Last Taken Type Vit-Fe Fumar-FA [ 1 tab PO QDAY 06/17/17 09/12/18 09/12/18 11:30 History Vitamin] Ferrous Sulfate [Feosol 325 MG tab] 325 mg PO BID #60 tablet 09/14/18 Unknown Rx HYDROcodone/APAP 5-325 [[place] 1 each PO Q6HR PRN #30 tablet 09/14/18 Unknown Rx 5/325] Ibuprofen [Motrin] 800 mg PO Q8HR PRN #30 tablet 09/14/18 Unknown Rx Pnv No.95/Ferrous Fum/Folic AC 1 each PO DAILY #30 tablet 09/14/18 Unknown Rx [Prenavite Tablet] labetaloL [Labetalol 200mg TAB] 200 mg PO BID #60 tablet 09/17/18 Unknown Rx Naproxen [Naprosyn] 500 mg PO BID #14 tablet 07/21/21 Unknown Rx Albuterol Mdi (or & Nicu Only) 2 puff IH QID PRN #1 inhalation 07/31/21 Unknown Rx [ProAir HFA Inhaler] Benzonatate [Tessalon Perles] 100 mg PO Q8HR #20 capsule 07/31/21 Unknown Rx predniSONE [Deltasone] 20 mg PO QDAY #5 tab 07/31/21 Unknown Rx ED Physical Exam - General Limitations: No Limitations General appearance: alert, in no apparent distress - Head Head exam: Present: atraumatic, normocephalic - Eye Eye exam: Present: normal appearance, PERRL, EOMI Pupils: Present: normal accommodation - ENT ENT exam: Present: normal exam, normal orophraynx, mucous membranes moist, TM's normal bilaterally - Neck Neck exam: Present: normal inspection, full ROM - Respiratory Respiratory exam: Present: normal lung sounds bilaterally. Absent: respiratory distress, wheezes, rales, chest wall tenderness, accessory muscle use - Cardiovascular Cardiovascular Exam: Present: regular rate, normal rhythm. Absent: systolic murmur, diastolic murmur, rubs, gallop - GI/Abdominal GI/Abdominal exam: Present: soft, normal bowel sounds - Extremities Exam Extremities exam: Present: normal inspection - Back Exam Back exam: Present: normal inspection - Neurological Exam Neurological exam: Present: alert, oriented X3 - Psychiatric Psychiatric exam: Present: normal affect, normal mood - Skin Skin exam: Present: warm, dry, intact, normal color. Absent: rash ED Course Vital Signs 07/30/21 21:09 Temperature 98.0 F Pulse Rate 94 H Respiratory 18 Rate Blood Pressure 115/90 O2 Sat by Pulse 100 Oximetry ED Medical Decision Making - Radiology Data Radiology results: report reviewed [facility] [address] [place] [address] XRay Report Signed Patient: LINNETTE GREGG MR#: [id number] : 1995 Acct:[id number] Age/Sex: 26 / F ADM Date: 07/30/21 Loc: ED Attending Dr: Ordering Physician: ED MD MARCUS Date of Service: 07/31/21 Procedure(s): XR chest 1V ap Accession Number(s): [id number] cc: ED MD MARCUS Fluoro Time In Minutes: CHEST 1 VIEW 07/31/2021 12:50 AM INDICATION / CLINICAL INFORMATION: Exposure to mold. COMPARISON: One view of the chest from 04/30/2019. FINDINGS: SUPPORT DEVICES: None. HEART / MEDIASTINUM: No significant abnormality. LUNGS / PLEURA: No significant pulmonary abnormality. No significant pleural effusion. No pneumothorax. ADDITIONAL FINDINGS: No significant additional findings. IMPRESSION: 1. No acute abnormality of the chest. Signer Name: Les Sanders MD Signed: 07/31/2021 1:53 AM Workstation Name: [id number] Transcribed By: MN Dictated By: Les Sanders MD Electronically Authenticated By: Les Sanders MD Signed Date/Time: 07/31/21152 DD/ 2 TD/TT: Critical care attestation.: If time is entered above; I have spent that time in minutes in the direct care of this critically ill patient, excluding procedure time. ED Disposition Clinical Impression: Cough, Mold suspected exposure Disposition: 01 HOME / SELF CARE / HOMELESS Is pt being admited?: No Does the pt Need Aspirin: No Condition: Stable Instructions: Cool Mist Vaporizer, Cough, Adult Referrals: PRIMARY CAREMD [Primary Care Provider] - 3-5 Days [facility] [Provider Group] - 3-5 Days
== END 2021-07-31 04:21 | disposition home or self-care (01) ==
LOC: ED 21:06
DX: R05.8 Other specified cough (principal); Z77.120 Contact with and (suspected) exposure to mold (toxic)
CPT/HCPCS: 71045; 99283

== ENCOUNTER 2021-12-21 12:19 | Emergency (ER) | payer SELFPAY ==
[2021-12-21 13:00] VITALS: BP 140/70
[2021-12-21] MEDS ORDERED: SODIUM CHLORIDE 0.9% 500 ML 500 ML IV ONE (13:12)
[2021-12-21] MEDS ORDERED: ACETAMINOPHEN 500 MG TAB PO STA (13:12)
--- NOTE | 2021-12-21 14:00 | XRay Report ---
CHEST 2 VIEWS INDICATION: possible Sepsis. COMPARISON: 07/31/2021 FINDINGS: Support devices: None. Heart: Within normal limits. Lungs/pleura: No acute air space or interstitial disease. No pneumothorax. Additional findings: None. IMPRESSION: No acute findings. Signer Name: Roberto Urban Jr, MD Signed: 12/21/2021 1:55 PM Workstation Name: [id number]
[2021-12-21 14:18] LABS: Basophils % (Auto) 0.1 % (0.0-1.8); Eosinophils % (Auto) 0.3 % (0.0-4.3); Hematocrit 43.6 % (30.3-42.9); Hemoglobin 14.8 gm/dl (10.1-14.3); Lymphocytes # (Auto) 0.3 K/mm3 (1.2-5.4); Lymphocytes % (Auto) 3.9 % (13.4-35.0); Mean Corpuscular HGB Conc 34 % (30-34); Mean Corpuscular Volume 86 fl (79-97); Monocytes # (Auto) 0.6 K/mm3 (0.0-0.8); Monocytes % (Auto) 7.8 % (0.0-7.3); Platelet Count 231 K/mm3 (140-440); Red Blood Count 5.06 M/mm3 (3.65-5.03); Red Cell Distribution Width 13.1 % (13.2-15.2)
[2021-12-21 14:28] LABS: INR 0.92 (0.87-1.13)
[2021-12-21 14:45] LABS: Alanine Aminotransferase 10 units/L (7-56); Albumin 4.4 g/dL (3.9-5); BUN/Creatinine Ratio 10; Blood Urea Nitrogen 8 mg/dL (7-17); Calcium 9.4 mg/dL (8.4-10.2); Hemolysis Index 12
== END 2021-12-21 14:00 | disposition left against medical advice (07) ==
LOC: ED 12:19
DX: R07.9 Chest pain, unspecified (principal); Z53.21 Procedure and treatment not carried out due to patient leaving prior to being seen by health care provider
CPT/HCPCS: 36415; 71046; 80053; 82140; 82805; 85025; 85610; 87040